=== PATIENT | male | born 1955 | race Two or more races ===

== ENCOUNTER 2019-05-20 10:14 | Day surgery (SDC) | payer OTHER | END 2019-05-20 17:45 | disposition home or self-care (01) | LOC: AMB-ENDOS 10:14 | DX: D12.2 Benign neoplasm of ascending colon (principal); D12.3 Benign neoplasm of transverse colon; K64.1 Second degree hemorrhoids ==

== ENCOUNTER 2020-05-21 10:20 | Emergency (ER) | payer OTHER ==
[~2020-05-21] VITALS: Ht 177.8 cm; Wt 110.7 kg
[2020-05-21] MEDS ORDERED: COZAAR100 MG PO (10:28)
[2020-05-21] MEDS ORDERED: METFORMIN HCL1000 M2 (10:29)
[2020-05-21] MEDS ORDERED: GEMFIBROZIL (10:30)
[2020-05-21] MEDS ORDERED: NORFLEX100MG PO (13:44)
[2020-05-21] MEDS ORDERED: KETO10TA2 PO (13:44)
== END 2020-05-21 13:47 | disposition home or self-care (01) ==
LOC: ER 10:20
DX: M54.2 Cervicalgia (principal)

== ENCOUNTER 2020-08-17 06:45 | Day surgery (SDC) | payer OTHER ==
[~2020-08-17 06:45] MED LIST: COZAAR100 MG PO; GEMFIBROZIL; KETO10TA2 PO; METFORMIN HCL1000 M2; NORFLEX100MG PO
== END 2020-08-17 11:25 | disposition home or self-care (01) ==
LOC: AMB-ENDOS 06:45
PROVIDERS: ATTEND Colon & Rectal Surgery
DX: K62.89 Other specified diseases of anus and rectum (principal); K64.1 Second degree hemorrhoids; Z20.828 Contact with and (suspected) exposure to other viral communicable diseases